=== PATIENT | male | born 1955 | race Two or more races ===

== ENCOUNTER 2024-10-09 08:41 | Emergency (ER) | payer OTHER ==
[~2024-10-09] VITALS: Ht 205.7 cm; Wt 99.8 kg
[2024-10-09] MEDS ORDERED: FARXIGA10 MG PO (09:12)
[2024-10-09] MEDS ORDERED: LOSARTAN POTASS50 MG PO (09:12)
[2024-10-09] MEDS ORDERED: SIMVASTATIN20 MG PO (09:12)
[2024-10-09] MEDS ORDERED: GLIPIZIDE10 MG PO (09:12)
[2024-10-09] MEDS ORDERED: KETOROLAC TROMETHAMINE 60 MG VIAL IM STA (11:01)
== END 2024-10-09 12:53 | disposition home or self-care (01) ==
LOC: ER 08:44
DX: G89.11 Acute pain due to trauma (principal); S76.912A Strain of unspecified muscles, fascia and tendons at thigh level, left thigh, initial encounter; S86.912A Strain of unspecified muscle(s) and tendon(s) at lower leg level, left leg, initial encounter; E11.9 Type 2 diabetes mellitus without complications; Z79.84 Long term (current) use of oral hypoglycemic drugs
CPT/HCPCS: 73551; 73560; 96372; 99283; J1885